=== PATIENT | female | born 1985 | race Two or more races ===

== ENCOUNTER 2021-12-14 23:58 | Emergency (ER) | payer BC, OTHER ==
[~2021-12-14] VITALS: Ht 162.6 cm; Wt 53.5 kg
--- NOTE | 2021-12-15 00:25 | NUR ---
DR. HORTENSIA Nash, AT BEDSIDE, MSE IN PROGRESS.
[2021-12-15] MEDS ORDERED: ASPIRIN 81 MG TAB.CHEW ONE (00:26)
[2021-12-15] MEDS ORDERED: ASPIRIN 81 MG TAB.CHEW PO ONE (00:30)
--- NOTE | 2021-12-15 00:32 | NUR ---
PT AMBULATED TO ER C/O INTERMITTENT CP THAT STARTED AFTERNOON OF 12/14/21. HAS HX OF GERD. A/O X4, NO SOB OR LABORED BREATHING, AFEBRILE. DENIES ANY N/V/D. CLEAR SPEECH, COMPLETE SENTENCES. ABLE TO MOVE ALL EXTREMITIES WITHIN NORMAL LIMITS. 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
--- NOTE | 2021-12-15 00:40 | NUR ---
XRAY AT BEDSIDE.
[2021-12-15 00:53] LABS: HEMATOCRIT 37.2 % (31.2-41.9); MEAN CORPUSCULAR HEMOGLOBIN 28.9 uug (24.7-32.8); MEAN CORPUSCULAR VOLUME 85.2 fL (75.5-95.3); PLATELET COUNT (AUTO) 255 K/uL (179-408)
[2021-12-15 01:04] LABS: CARBON DIOXIDE 29 mmol/L (21-32); CHLORIDE 102 mmol/L (98-107); CREATININE 0.8 mg/dL (0.6-1.3); GLUCOSE 102 mg/dL (74-106); POTASSIUM 3.7 mmol/L (3.5-5.1); UREA NITROGEN, BLOOD 12 mg/dL (7-18)
[2021-12-15 01:13] LABS: ALANINE AMINOTRANSFERASE 20 U/L (14-59); ALKALINE PHOSPHATASE 91 U/L (50-136); ASPARTATE AMINOTRANSFERASE 16 U/L (15-37); BILIRUBIN,DIRECT 0.1 mg/dL (0.0-0.2); BILIRUBIN,TOTAL 0.6 mg/dL (0.2-1.0); TOTAL PROTEIN, SERUM 8.5 g/dL (6.4-8.2)
[2021-12-15] MEDS ORDERED: HYDR-4209 PO (01:13)
--- NOTE | 2021-12-15 03:08 | NUR ---
Patient discharged to home in stable condition. Written and verbal after care instructions given. Patient verbalizes understanding of instructions. Stressed follow up or return to ER for worsening s/s. Steady gait, denies any pain/discomfort upon discharge. No WONG/dizzyness. Picked up by sister.
[2021-12-15 03:39] VITALS: BP 100/65
== END 2021-12-15 03:15 | disposition home or self-care (01) ==
LOC: ER 12-15 00:32
DX: R07.9 Chest pain, unspecified (principal); I70.90 Unspecified atherosclerosis; K21.9 Gastro-esophageal reflux disease without esophagitis
CPT/HCPCS: 36415; 71045; 84484; 85025; 93005; A4663